=== PATIENT | female | born 1990 | race Caucasian/White ===

== ENCOUNTER 2017-08-17 11:11 | Emergency (ER) | payer OTHER ==
[~2017-08-17] VITALS: Ht 149.9 cm; Wt 53.5 kg
[2017-08-17 11:46] LABS: URINE BILIRUBIN NEGATIVE (Negative); URINE BLOOD 2+ (Negative); URINE COLOR YELLOW; URINE GLUCOSE-RANDOM* NEGATIVE (Negative); URINE KETONES NEGATIVE (Negative); URINE NITRITE NEGATIVE (Negative); URINE PROTEIN (DIPSTICK) TRACE (Negative); URINE UROBILINOGEN 0.2 E.U./dl (0.2-1.0)
[2017-08-17 11:52] LABS: ABSOLUTE NEUTROPHILS 7.7 thou/uL (1.4-8.2); BASOPHILS 0.3 % (0.0-2.0); CASTS None Seen /LPF (None Seen); CRYSTALS None Seen /LPF (None Seen); EOSINOPHILS 0.9 % (0.0-3.0); HEMATOCRIT 38.8 % (37.0-47.0); HEMOGLOBIN 13.3 gm/dL (12.0-15.0); LYMPHOCYTES 12.5 % (24.0-44.0); MCH 31.1 pg (26.0-34.0); MCHC 34.2 g/dL (28.0-37.0); MCV 90.9 fL (80.0-100.0); MONOCYTES 4.4 % (1.0-8.0); PLATELET COUNT 272 thou/uL (150-400); POLYS 81.9 % (36.0-66.0); RBC 4.27 mil/uL (4.20-5.00); SQUAMOUS >10 Many /LPF (0-3); WBC 9.4 thou/uL (4.0-11.0)
[2017-08-17 11:53] LABS: BACTERIA 1-9 Few /HPF (None Seen); CALCIUM OXALATE 0-3 Few /LPF (None Seen); MANUAL DIFF NO; URINE RBC >20 Many /HPF (0-2); URINE WBC 0-5 Rare /HPF (0-5)
[2017-08-17 12:01] LABS: CALCIUM 9.2 mg/dL (8.5-10.1); CREATININE 0.7 mg/dL (0.6-1.0); POTASSIUM 3.7 mmol/L (3.5-5.1)
[2017-08-17] MEDS ORDERED: IBUPROFEN 600600 M1 PO (12:41)
[2017-08-17] MEDS ORDERED: NORCO 5-325 TA1 EACH PO (12:41)
[2017-08-17 12:58] VITALS: BP 110/74
[2017-08-17] MEDS ORDERED: ZOFRAN ODT8 MG PO (19:41)
== END 2017-08-17 13:00 | disposition home or self-care (01) ==
LOC: ER 11:11
PROVIDERS: Nurse Practitioner
DX: R10.9 Unspecified abdominal pain (principal); F17.210 Nicotine dependence, cigarettes, uncomplicated

== ENCOUNTER 2017-08-17 18:03 | Emergency (ER) | payer OTHER ==
[~2017-08-17] VITALS: Ht 149.9 cm; Wt 53.5 kg
[~2017-08-17 18:03] MED LIST: IBUPROFEN 600600 M1 PO; NORCO 5-325 TA1 EACH PO
[2017-08-17] MEDS ORDERED: ZOFRAN ODT8 MG PO (19:41)
[2017-08-17 20:16] VITALS: BP 113/84
== END 2017-08-17 20:17 | disposition home or self-care (01) ==
LOC: ER 18:03
DX: N20.0 Calculus of kidney (principal); F17.210 Nicotine dependence, cigarettes, uncomplicated